=== PATIENT | female | born 1940 | race Caucasian/White ===

== ENCOUNTER → 2017-01-12 | Outpatient (CLI) | payer MEDICARE ==
[~2017-01-12] MED LIST: ALLER-TEC10 MG PO; ARTIFICIAL TEAR15 ML OU; ASPIR 8181 MG PO; COMPACT COMPRE1 EACH MC; DIAMOX 250 MG250 MG PO; DULERA 100 MCG8.8 GM INH; FLECAINIDE ACET50 MG PO; GLUCOTROL 10 MG10 MG PO; HYDROCHLOROTHIA25 MG PO; IMDUR ER TAB 3030 MG PO; IPRAT-ALBUT 0.5-3 ML INH; K-DUR TAB 20 M20 MEQ PO; LASIX40 MG PO; LEVOTHYROXINE150 MCG PO; LIPITOR TAB 2020 MG PO; LOSARTAN POTAS100 MG PO; NORVASC 5 MG TAB5 MG PO; PIOGLITAZ-GLIM1 EACH PO; TYLENOL W/CODEIN1 E1 PO
== END ==
LOC: HEART 5 14:48
DX: J30.9 Allergic rhinitis, unspecified (principal); F41.9 Anxiety disorder, unspecified; M19.90 Unspecified osteoarthritis, unspecified site; H26.9 Unspecified cataract; J44.9 Chronic obstructive pulmonary disease, unspecified
CPT/HCPCS: 94060; 94729

== ENCOUNTER → 2017-01-13 | Outpatient (CLI) | payer MEDICARE, OTHER | LOC: RAD 16:25 | DX: J44.9 Chronic obstructive pulmonary disease, unspecified (principal); J96.92 Respiratory failure, unspecified with hypercapnia | CPT/HCPCS: 36600; 71020; 82803 ==